=== PATIENT | female | born 1960 | race Caucasian/White ===

== ENCOUNTER 2021-08-16 19:06 | Emergency (ER) | payer OTHER ==
[2021-08-16 19:45] VITALS: TEMP 97.6; BMI 46.8
[2021-08-16] MEDS ORDERED: IBUPROFEN 400 MG TABLET (FP) PO ONE ×2 (22:28→22:48)
[2021-08-16] MEDS ORDERED: AMOXICILLIN 500 MG CAPSULE (FP) PO ONE (22:29)
[2021-08-16] MEDS ORDERED: AMOXICILLIN 500 MG CAPSULE (FP) ONE (22:47)
[2021-08-16 23:01] VITALS: BP 142/93; PULSE 93
== END 2021-08-16 22:57 | disposition home or self-care (01) ==
LOC: JERFT 19:06 → JER 19:06
DX: K04.7 Periapical abscess without sinus (principal); K08.89 Other specified disorders of teeth and supporting structures
CPT/HCPCS: 99283-25